=== PATIENT | female | born 1940 ===

== ENCOUNTER 2018-04-09 06:34 | Day surgery (SDC) | payer MEDICARE ==
[2017-10-29 11:27] VITALS: BMI 24.5
[2018-04-09] MEDS ORDERED: DiphenhydrAMINE 50 mg/ml Inj ONE (07:30)
[2018-04-09] MEDS ORDERED: Dextrose 50% SYRINGE Inj (50 ml) ONE (08:31)
[2018-04-09] MEDS ORDERED: Iodixanol 320 MG/ML 200 ML BOTTLE IV ONE (08:33)
[2018-04-09] MEDS ORDERED: Lidocaine 2% MPF (5 ml) Inj ONE (08:33)
--- NOTE | 2018-04-09 09:41 | PCM.SURG1 ---
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 left distal sfa occlusion/ stenosi. one vessel run off via peroneal on left. right distal sfa multiple stenoses. pressure closure right groin Post-Operative Diagnosis: same Operation Performed: aortofemoral angiogram via right groin. no intervention due to equipment failure Specimen/Specimens Removed: 0 Estimated Blood Loss: EBL {In ML}: 10 Blood Products Given: N/A Drains Used: No Drains Post-Op Condition: Good Date of Surgery/Procedure: 04/09/18 Time of Surgery/Procedure: 09:50
--- NOTE | 2018-04-10 06:25 | VAS ---
DATE: 04/09/2018 OPERATIVE ANGIOGRAM REPORT PREOPERATIVE DIAGNOSIS: Ischemic ulcer, left great toe. POSTOPERATIVE DIAGNOSIS: Ischemic ulcer, left great toe. PROCEDURE CARRIED OUT: Aortofemoral angiogram via right groin. SURGEON: Jimmy Hood Jr., MD SOW FARM MANAGER: None. ANESTHESIOLOGIST: Win Regalado MD ANESTHESIA: Local sedation. INDICATIONS: A 77-year-old woman with ischemic ulcer in the left foot. OPERATIVE FINDINGS: The procedure was aborted due to equipment failure. Nonetheless, we completed diagnostic arteriogram prior to this. All the images were not captured which was part of the equipment failure. DESCRIPTION OF PROCEDURE: The patient was given local anesthesia. Using ultrasound guidance and micropuncture technique, the right common femoral vein was punctured. Under fluoroscopic control, the guidewire was advanced . Overlapping films were taken to this level down. OPERATIVE FINDINGS: There was a right common iliac artery stenosis approximately 80%, which is unrecognized. In addition, the aorta and renal arteries were otherwise free of occlusive disease. The left common iliac, external iliac, and internal iliac were widely patent. There was a mild degree of stenosis approximately 10% at the left common femoral artery. Distally, the left superficial femoral artery occluded and had a 99% stenosis behind the knee popliteal segment and run off to three times due to only via the peroneal artery in the foot. There were no main vessels seen in the foot. On the right side, there was a similar pattern, but not quite as severe. Superficial femoral and profunda femoris arteries were widely patent. The popliteal artery had occlusive disease but not as badly as on the left side, and there were increased in the foot. At this point, we were unable to maintain the images that had been captured. We rebooted the entire system and then took another injection from the right common femoral, confirming the presence of the iliac artery stenosis on the right side and at this point we abandoned the procedure. We removed the device from the groin and applied pressure. BLOOD LOSS: 10 mL. OPERATION CARRIED OUT: Aortofemoral angiogram. DIAGNOSTIC STUDY: No intervention carried out. Jimmy Hood Jr., MD
== END 2018-04-09 13:00 | disposition home or self-care (01) ==
LOC: C.SPRAD 06:34
PROVIDERS: ATTEND Surgery Vascular Surgery
DX: I70.245 Atherosclerosis of native arteries of left leg with ulceration of other part of foot (principal); L97.529 Non-pressure chronic ulcer of other part of left foot with unspecified severity
CPT/HCPCS: 36200; 36247; 75625; 75716; 76937; 82948; C1766; C1769; J1200; J1644; J3010; P000X; Q9966

== ENCOUNTER 2018-04-17 06:44 | Day surgery (SDC) | payer MEDICARE, OTHER ==
[2017-10-29 11:27] VITALS: BMI 24.5
[2018-04-17] MEDS ORDERED: Lidocaine 2% MPF (5 ml) Inj ONE (07:52)
[2018-04-17] MEDS ORDERED: Propofol 10 mg/ml Inj (20 ML) ONE ×2 (08:10)
[2018-04-17] MEDS ORDERED: Midazolam 2 MG/2 ML VIAL ONE (08:11)
[2018-04-17] MEDS ORDERED: Verapamil 2 ML ONE (09:41)
--- NOTE | 2018-04-17 10:06 | PCM.SURG1 ---
Surgeon's Initial Post Op Note - Surgeon's Notes Surgeon: zeenat Segment Producer: 0 Type of Anesthesia: IV Sedation Anesthesia Administered By: radha Pre-Operative Diagnosis: ischemic ulcer of toe Operative Findings: distal sfa/ proximal popliteal disease. successful atherectomy/ dcb 5 mm. single vessel run off peroneal. DP reconstitutes below knee. perclose right Post-Operative Diagnosis: same Operation Performed: selective left femoral angiogram. pathway atherectomy. dcb 5mm balloon angioplasty Specimen/Specimens Removed: 0 Estimated Blood Loss: EBL {In ML}: 25 Blood Products Given: N/A Drains Used: No Drains Post-Op Condition: Good Date of Surgery/Procedure: 04/17/18 Time of Surgery/Procedure: 10:07
[2018-04-18 14:38] VITALS: RESP 16; O2SAT 100
--- NOTE | 2018-05-01 08:36 | VAS ---
DATE: 04/17/2018 OPERATIVE ANGIOGRAM REPORT PREOPERATIVE DIAGNOSES: Ischemic ulceration of left foot. PROCEDURE CARRIED OUT: Aortofemoral angiogram with selective catheterization of left femoral artery, pathway atherectomy and drug-coated balloon angioplasty using a 5-mm balloon. SURGEON: Jimmy Hood Jr., MD. CENTRAL OFFICE EQUIPMENT ENGINEER: None. ANESTHESIOLOGIST: Dr. Judd. ANESTHESIA: Local with sedation. INDICATIONS: The patient is a middle-aged woman with variety of medical problems presenting with ischemic ulceration on the toe. OPERATIVE FINDINGS: There was severe disease in the distal superficial femoral and proximal popliteal artery. There was successful atherectomy and drug-coated balloon angioplasty using a 5-mm balloon of the SFA popliteal. There is single-vessel runoff via the peroneal and reconstitution of the dorsal pedis artery below the knee. DESCRIPTION OF PROCEDURE: The patient was given anesthesia. We had previously taken films at an earlier stage, and were unable to complete the procedure due to technical equipment problems. With this, we then placed a catheter at the aortic bifurcation and over the aortic bifurcation positioned the catheter and a 7-Tajik sheath in the distal portion of the common femoral artery, crossed the lesion uneventfully, exchanged for an 0.014 wire and then carried out an atherectomy with the pathway device with good clinical results. We then placed a drug-coated balloon 5 mm and carried out a successful angioplasty. The cosmetic results of the final closure was excellent. There was only one-vessel run off via peroneal with the reconstitution of the dorsalis pedis distally. Subsequent to the performance of the intervention additional films were taken confirming the clinical results. The Perclose device was then deployed in the right groin and the procedure was terminated. Blood loss was less than 50 mL. OPERATION CARRIED OUT: Selective left femoral angiogram, pathway atherectomy and drug-coated balloon angioplasty of the left superficial femoral and popliteal artery. Jimmy Hood Jr., MD
== END 2018-04-17 13:15 | disposition home or self-care (01) ==
LOC: C.SPRAD 06:44
PROVIDERS: ATTEND Surgery Vascular Surgery
DX: L97.529 Non-pressure chronic ulcer of other part of left foot with unspecified severity (principal)
CPT/HCPCS: 36247; 37225; 75625; 75716; 75774; 76937; 82948; 94770; C1724; C1725; C1760; C1766; C1769; C1884; C1887; C1894; J1644; J2250; J2704; J3010; Q9967

== ENCOUNTER 2018-10-20 12:42 | Outpatient (CLI) | payer MEDICARE, OTHER | END 2018-10-20 12:43 | disposition home or self-care (01) | LOC: C.RADH 12:42 | DX: M16.11 Unilateral primary osteoarthritis, right hip (principal); M48.061 Spinal stenosis, lumbar region without neurogenic claudication ==